=== PATIENT | female | born 1970 | race American Indian/Alaskan Native ===

== ENCOUNTER 2018-07-22 17:38 | Emergency (ER) | payer BC ==
[2018-07-22 17:42] VITALS: BMI 34.3
[2018-07-22 17:43] VITALS: TEMP 97.3; O2SAT 100
[2018-07-22] MEDS ORDERED: Sodium Chloride 0.9% 1,000 ML IV STA (17:51)
[2018-07-22] MEDS ORDERED: Labetalol 5 mg/ml Inj 20ML IV STA (17:53)
--- NOTE | 2018-07-22 18:21 | ED PDOC ---
Arrival/HPI - General Chief Complaint: High Blood Pressure Time Seen by Provider: 07/22/18 17:41 Historian: Patient - History of Present Illness Narrative History of Present Illness (Text): 07/22/18 18:16 48 year old female, with past medical history of hypertension, presents to the ED for evaluation of elevated blood pressure today. Patient states she was in her GI's office when she was made aware of elevated blood pressure and was subsequently referred to the ED for evaluation. Patient states she was experiencing adverse effects from new blood pressure medication and subsequently stopped a year ago. Patient states she was unable to follow up with her PMD for a substitution and has been off of blood pressure medication since then. Patient currently informs mild chest discomfort and chronic lower abdominal pain. Patien t denies any other associated somatic complaints. Patient denies any fevers, chills, headache, dizziness, shortness of breath, dyspnea on exertion, cough, nausea, vomiting, diarrhea, back pain, neck pain, or any other complaints. Time/Duration: Prior to Arrival Symptom Onset: Gradual Symptom Course: Unchanged Activities at Onset: Light Past Medical History - Provider Review Nursing Documentation Reviewed: Yes - Infectious Disease Hx of Infectious Diseases: None - Cardiac Hx Hypertension: Yes - Psychiatric Hx Substance Use: No - Surgical History Hx Appendectomy: Yes Hx Tubal Ligation: Yes - Anesthesia Hx Anesthesia: Yes Hx Anesthesia Reactions: No Hx Malignant Hyperthermia: No Family/Social History - Physician Review Nursing Documentation Reviewed: Yes Family/Social History: Unknown Family HX Smoking Status: Heavy Smoker > 10 Cigarettes Daily Hx Alcohol Use: No Hx Substance Use: No Allergies/Home Meds Allergies/Adverse Reactions: Allergies No Known Allergies Allergy (Verified 07/22/18 17:41) Home Medications: Home Meds Medication Instructions Recorded Confirmed No Known Home Med 07/22/18 07/22/18 Review of Systems - Physician Review All systems were reviewed & negative as marked: Yes - Review of Systems Constitutional: absent: Fevers Respiratory: absent: SOB, Cough Cardiovascular: Chest Pain, Other (Elevated blood pressure) Gastrointestinal: absent: Diarrhea, Nausea, Vomiting Genitourinary Female: absent: Dysuria Musculoskeletal: absent: Back Pain, Neck Pain Skin: absent: Rash Neurological: absent: Headache, Dizziness Psychiatric: absent: Anxiety Physical Exam Vital Signs Reviewed: Yes Vital Signs Temp Pulse Resp BP Pulse Ox 07/22/18 17:46 174/98 H 07/22/18 17:43 97.3 F L 83 18 189/113 H 100 Temperature: Afebrile Blood Pressure: Hypertensive Pulse: Regular Respiratory Rate: Normal Appearance: Positive for: Well-Appearing, Non-Toxic, Comfortable Pain Distress: None Mental Status: Positive for: Alert and Oriented X 3 - Systems Exam Head: Present: Atraumatic, Normocephalic Pupils: Present: PERRL Extroacular Muscles: Present: EOMI Conjunctiva: Present: Normal Neck: Present: Normal Range of Motion Respiratory/Chest: Present: Clear to Auscultation, Good Air Exchange. No: Respiratory Distress, Accessory Muscle Use Cardiovascular: Present: Regular Rate and Rhythm, Normal S1, S2. No: Murmurs Abdomen: No: Tenderness, Distention, Peritoneal Signs Back: Present: Normal Inspection Upper Extremity: Present: Normal Inspection. No: Cyanosis, Edema Lower Extremity: Present: Normal Inspection. No: Edema Neurological: Present: GCS=15, CN II-XII Intact, Speech Normal Skin: Present: Warm, Dry, Normal Color. No: Rashes Psychiatric: Present: Alert, Oriented x 3, Normal Insight, Normal Concentration Medical Decision Making ED Course and Treatment: 07/22/18 17:00 Impression: 48 year old female presents to the ED for evaluation of elevated blood pressure. Differential Diagnosis included but are not limited to: --Hypertensive Urgency/Emergency --SAH --ACS Plan: -- EKG -- CXR -- Toradol --Labetolol -- Rapid Flu -- Reassess and disposition Prior Visits: Notes and results from previous visits were reviewed. Progress Notes: 07/22/18 20:02 Labs reviewed with no acute abnormalities. Shared decision making with patient desiring to follow up with her own PCP. BP 166/80s without need for Labetolol. She states she will be able to follow up with her PCP in the next few days for medications. Oppertunity for questions given and answered. Return protocol given. She is stable for discharge. - Lab Interpretations Lab Results: 07/22/18 18:38 07/22/18 18:38 Lab Results 07/22/18 18:38: Sodium 141, Potassium 3.5 L, Chloride 102, Carbon Dioxide 31, Anion Gap 11, BUN 16, Creatinine 0.8, Est GFR ( Amer) > 60, Est GFR (Non- Af Amer) > 60, Random Glucose 86, Calcium 9.9, Magnesium 2.0, Total Bilirubin 0.3, AST 38 H, ALT 17, Alkaline Phosphatase 106, Total Protein 8.6 H, Albumin 4.5, Globulin 4.1, Albumin/Globulin Ratio 1.1 07/22/18 18:38: Urine Color Yellow, Urine Appearance Clear, Urine pH 6.0, Ur Specific [place] 1.025, Urine Protein Negative, Urine Glucose (UA) Negative, Urine Ketones Negative, Urine Blood Negative, Urine Nitrate Negative, Urine Bilirubin Negative, Urine Urobilinogen 0.2, Ur Leukocyte Esterase Trace H, Urine RBC Pending, Urine WBC Pending 07/22/18 18:38: WBC 10.7, RBC 4.38, Hgb 13.4, Hct 40.3, MCV 92.0, MCH 30.6, MCHC 33.3, RDW 12.9, Plt Count 317, MPV 10.5, Neut % (Auto) 66.7, Lymph % (Auto) 26.3, [place] % (Auto) 5.1, Eos % (Auto) 1.7, Baso % (Auto) 0.2, Lymph # (Auto) 2.8, [place] # (Auto) 0.5, Eos # (Auto) 0.2, Baso # (Auto) 0.02, Absolute Neuts (auto) 7.14 H I have reviewed the lab results: Yes - RAD Interpretation Narrative RAD Interpretations (Text): 07/22/18 19:52 CT of head reviewed by radiologist, shows: FINDINGS: BRAIN No acute intraparenchymal hemorrhage. No mass lesion. No CT evidence for acute territorial infarct. No midline shift or extra-axial collections. VENTRICLES: No hydrocephalus. ORBITS: The orbits are unremarkable. SINUSES AND MASTOIDS: The paranasal sinuses and mastoid air cells are clear. BONES: No fracture. SOFT TISSUES: Unremarkable. IMPRESSION: No acute intracranial abnormality. Radiology Orders: 07/22/18 17:51 HEAD W/O CONTRAST [CT] Stat Automatic Transmission Mechanic: Radiologist - EKG Interpretation EKG Interpretation (Text): 07/22/18 18:09 EKG reviewed by radiologist, shows NSR @68 bpm, slightly prolonged, QT interval, No ST elevations, No peaked T waves. Interpreted by ED Physician: Yes Type: 12 lead EKG - Medication Orders Current Medication Orders: Sodium Chloride (Sodium Chloride 0.9%) 1,000 mls @ 999 mls/hr IV .Q1H1M STA Stop: 07/22/18 18:51 Discontinued Medications Labetalol HCl (Trandate) 20 mg IV STAT STA Stop: 07/22/18 17:54 Metoclopramide HCl (Reglan) 10 mg IVP STAT STA Stop: 07/22/18 17:53 - Scribe Statement The provider has reviewed the documentation as recorded by the Scribe Davon Rodney. All medical record entries made by the Scribe were at my direction and personally dictated by me. I have reviewed the chart and agree that the record accurately reflects my personal performance of the history, physical exam, medical decision making, and the department course for this patient. I have also personally directed, reviewed, and agree with the discharge instructions and disposition. Disposition/Present on Arrival - Present on Arrival Any Indicators Present on Arrival: No History of DVT/PE: No History of Uncontrolled Diabetes: No Urinary Catheter: No History of Decub. Ulcer: No History Surgical Site Infection Following: None - Disposition Have Diagnosis and Disposition been Completed?: Yes Diagnosis: Hypertensive urgency Disposition: HOME/ ROUTINE Disposition Time: 20:10 Patient Plan: Discharge Condition: IMPROVED Discharge Instructions (ExitCare): High Blood Pressure (DC), Medicines for High Blood Pressure Print Language: ROMANIAN Additional Instructions: All medical record entries made by the Scribe were at my direction and personally dictated by me. I have reviewed the chart and agree that the record accurately reflects my personal performance of the history, physical exam, medical decision making, and the department course for this patient. I have also personally directed, reviewed, and agree with the discharge instructions and disposition. Please follow up with your PCP in the next 3-5 days Referrals: Rocio Robledo MD [Medical Doctor] - Follow up with primary [facility] [place] - Follow up with primary Forms: [facility] (Uzbek), WORK NOTE
[2018-07-22 18:41] VITALS: RESP 16
[2018-07-22 19:01] LABS: ALB/GLOB RATIO 1.1 (1.1-1.8); ALBUMIN 4.5 g/dL (3.0-4.8); ALT/SGPT 17 U/L (7-56); AST/SGOT 38 U/L (14-36); BLOOD UREA NITROGEN 16 mg/dL (7-21); CALCIUM 9.9 mg/dL (8.4-10.5); GFR NON-AFRICAN AMERICAN > 60
[2018-07-22 19:14] LABS: BASO # 0.02 K/mm3 (0.0-2.0); BASO % 0.2 % (0.0-3.0); EOS # 0.2 (0.0-0.7); EOS % 1.7 % (1.5-5.0); HEMOGLOBIN 13.4 g/dL (12.0-16.0); LYMPH # 2.8 (1.2-3.4); LYMPH % 26.3 % (22.0-35.0); MEAN CORPUSCULAR HEMOGLOBIN 30.6 pg (25.0-35.0); MEAN CORPUSCULAR HGB CONC 33.3 g/dl (31.0-37.0); MEAN PLATELET VOLUME 10.5 fl (7.0-11.0); MONO # 0.5 (0.1-0.6); MONO % 5.1 % (1.0-6.0); RBC 4.38 10^6/uL (3.5-6.1); RED CELL DISTRIBUTION WIDTH 12.9 % (11.5-14.5); WHITE BLOOD COUNT 10.7 10^3/uL (4.5-11.0)
[2018-07-22 19:45] LABS: URINE BILIRUBIN NEGATIVE (NEGATIVE); URINE BLOOD NEGATIVE (NEGATIVE); URINE GLUCOSE (UA) NEGATIVE (NEGATIVE); URINE LEUKOCYTE ESTERASE TRACE Leu/uL (NEGATIVE); URINE PROTEIN NEGATIVE mg/dL (<30 mg/dL); URINE UROBILINOGEN 0.2 E.U./dL (<1 E.U./dL)
[2018-07-22 19:46] LABS: URINE APPEARANCE CLEAR (CLEAR); URINE COLOR YELLOW (YELLOW)
[2018-07-22 20:36] VITALS: BP 158/86; PULSE 77
[2018-07-22 20:37] LABS: URINE BACTERIA FEW /hpf; URINE EPITHELIAL CELLS 0 - 2 /hpf (0-5); URINE RBC 0 - 2 /hpf (0-2); URINE WBC 0 - 2 /hpf (0-6)
--- NOTE | 2018-07-23 08:22 | CT ---
Date of service: 07/22/2018 PROCEDURE: CT HEAD WITHOUT CONTRAST. HISTORY: headache w/ elevatedd bp COMPARISON: None available. TECHNIQUE: Axial computed tomography images were obtained through the head/brain without intravenous contrast. Radiation dose: Total exam DLP = 833.09 mGy-cm. This CT exam was performed using one or more of the following dose reduction techniques: Automated exposure control, adjustment of the mA and/or kV according to patient size, and/or use of iterative reconstruction technique. FINDINGS: HEMORRHAGE: No intracranial hemorrhage. BRAIN: No mass effect or edema. No atrophy or chronic microvascular ischemic changes. VENTRICLES: Unremarkable. No hydrocephalus. CALVARIUM: Unremarkable. PARANASAL SINUSES: Unremarkable as visualized. No significant inflammatory changes. MASTOID AIR CELLS: Unremarkable as visualized. No inflammatory changes. OTHER FINDINGS: The report concurs with the preliminary [facility] report IMPRESSION: Normal CT of the Head.
--- NOTE | 2018-07-23 09:19 | CARD ---
APPROVED REPORT Date of service: 07/22/2018 EKG Measurement Heart [id number] <Conclusion> Normal sinus rhythm Nonspecific ST and T wave abnormality Abnormal ECG
== END 2018-07-22 20:24 | disposition home or self-care (01) ==
LOC: MERGE 17:38 → ED 17:38
DX: I16.0 Hypertensive urgency (principal); F17.210 Nicotine dependence, cigarettes, uncomplicated
CPT/HCPCS: 70450; 80053; 81001; 81025; 83735; 85025; 87086; 93005; 96374; 99285; J2765